=== PATIENT | male | born 1960 | race Caucasian/White ===

== ENCOUNTER 2022-04-24 20:57 | Emergency (ER) | payer SELFPAY ==
[~2022-04-24] VITALS: Ht 175.3 cm; Wt 87.5 kg
[2022-04-24] MEDS ORDERED: XARELTO20 MG PO (21:31)
[2022-04-24] MEDS ORDERED: LISINOPRIL5 MG PO (21:32)
[2022-04-24] MEDS ORDERED: METOPROLOL SUCC25 MG PO (21:33)
[2022-04-24] MEDS ORDERED: SPIRONOLACTONE25 MG PO (21:33)
[2022-04-24] MEDS ORDERED: TORSEMIDE20 MG PO (21:34)
--- OUTSIDE RECORDS SUMMARY | 2022-04-24 21:38 | XMS ---
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 Jenny has no Care Guidelines for this patient. EEdith VISIT COUNT (12 MO.) [address] [place] [id number] [address] TOTAL 10 NOTE: Visits indicate total known visits. ED/UCC VISIT TRACKING (12 MO.) 04/24/2022 20:58 [facility] [place] TYPE: Emergency COMPLAINT: - DIFFICULTY BREATHING 04/21/2022 02:30 [facility] [place] TYPE: Emergency DIAGNOSES: - Labs Only - LABS ONLY! Legal draw for OSP 02/14/2022 13:33 [facility] [place] TYPE: Emergency DIAGNOSES: - Generalized anxiety disorder - Shortness of Breath - Acute stress reaction - Dyspnea, unspecified - Difficulty Breathing - Pleural effusion, not elsewhere classified 02/06/2022 16:33 [facility] [place] TYPE: Emergency DIAGNOSES: - Pleural effusion, not elsewhere classified - Shortness of Breath - Longstanding persistent atrial fibrillation - Chest Pain 01/15/2022 18:47 [facility] [place] TYPE: Emergency DIAGNOSES: - Flank Pain - Pneumonia, unspecified organism - Rib Pain [facility]12[facility]2022 13:[facility] DIAGNOSES: - Unspecified complication of internal prosthetic device, implant and graft, initial encounter - Chest Injury - Longstanding persistent atrial fibrillation - Pleural effusion, not elsewhere classified 12/26/2021 20:22 [facility] [place] TYPE: Emergency DIAGNOSES: - Pleural effusion, not elsewhere classified - Hypo-osmolality and hyponatremia - Post traumatic seizures - Chronic obstructive pulmonary disease, unspecified - Chronic obstructive pulmonary disease with (acute) exacerbation - Other generalized epilepsy and epileptic syndromes, not intractable, without status epilepticus - Dehydration - Unspecified atrial fibrillation - Disorder of kidney and ureter, unspecified - Altered Mental Status 12/24/2021 20:[facility] [place] [facility] DIAGNOSES: - Shortness of Breath - SOB - Chronic systolic (congestive) heart failure 12/17/2021 05:22 [facility] TYPE: Emergency COMPLAINT: - EMS P2 Trauma [place] DIAGNOSES: - Priority 2 Transfer Bull Attack - Heart failure, unspecified - Heart failure, unspecified 12/16/2021 20:33 [facility] [place] TYPE: Emergency DIAGNOSES: - Contusion of heart, unspecified with or without hemopericardium, initial encounter - Pleural effusion, not elsewhere classified - Other ascites - Trauma INPATIENT VISIT TRACKING (12 MO.) 02/07/2022 00:29 [facility] TYPE: General Medicine COMPLAINT: - Pleural Effusion DIAGNOSES: - Pleural effusion, not elsewhere classified 12/26/2021 20:22 [facility] [place] TYPE: Internal Medicine DIAGNOSES: - Pleural effusion, not elsewhere classified - Other generalized epilepsy and epileptic syndromes, not intractable, without status epilepticus - Hypo-osmolality and hyponatremia - Post traumatic seizures - Chronic obstructive pulmonary disease, unspecified - Dehydration - Unspecified convulsions - Disorder of kidney and ureter, unspecified - Unspecified atrial fibrillation 12/17/2021 05:22 [facility] TYPE: General Medicine COMPLAINT: - EMS P2 Trauma [place] DIAGNOSES: - Other specified injuries of thorax, initial encounter - Acute on chronic systolic (congestive) heart failure - Heart failure, unspecified [email or web address]
--- NOTE | 2022-04-26 15:29 | EKG ---
[facility] [address] [place], [place] [address] Signed Atrial fibrillation Possible Anterior infarct , age undetermined ST \T\ T wave abnormality, consider lateral ischemia Abnormal ECG No previous ECGs available Confirmed by MELY NERI MD ([id number]) on 04/26/2022 3:29:15 PM Electronically Signed By: MELY NERI MD 04/26/22 1529 PATIENT NAME: AIDEE FLOREZ Electrocardiogram DATE OF : 58 PHYSICIAN: MELY NERI MD REPORT #: [id number] REPORT IS CONFIDENTIAL AND NOT TO BE RELEASED WITHOUT AUTHORIZATION
--- NOTE | 2022-04-26 15:29 | EKG ---
[facility] [address] [facility] [place] [address] Signed Atrial fibrillation Anterior infarct (cited on or before 24-APR-2022) ST \T\ T wave abnormality, consider lateral ischemia Abnormal ECG When compared with ECG of 24-APR-2022 21:17, (Unconfirmed) T wave inversion more evident in Lateral leads Confirmed by MELY NERI MD ([id number]) on 04/26/2022 3:29:24 PM Electronically Signed By: MELY NERI MD 04/26/22 1529 PATIENT NAME: AIDEE FLOREZ Electrocardiogram DATE OF : 58 PHYSICIAN: MELY NERI MD REPORT #: [id number] REPORT IS CONFIDENTIAL AND NOT TO BE RELEASED WITHOUT AUTHORIZATION
== END 2022-04-25 04:25 | disposition home or self-care (01) ==
LOC: ED 20:57
DX: I11.0 Hypertensive heart disease with heart failure (principal); I50.9 Heart failure, unspecified; I48.91 Unspecified atrial fibrillation; J44.9 Chronic obstructive pulmonary disease, unspecified; Z88.6 Allergy status to analgesic agent; Z88.8 Allergy status to other drugs, medicaments and biological substances; Z91.018 Allergy to other foods; Z91.048 Other nonmedicinal substance allergy status; Z79.899 Other long term (current) drug therapy; Z20.822 Contact with and (suspected) exposure to COVID-19
CPT/HCPCS: 36415; 71045; 80053; 83735; 83880; 84484; 85025; 85379; 87502; 93005; 93010; 96361; 96374; 99285-25; J7121; U0003

== ENCOUNTER 2022-06-18 14:42 | Emergency (ER) | payer MEDICARE ==
[~2022-06-18] VITALS: Ht 175.3 cm; Wt 83.5 kg
[~2022-06-18 14:42] MED LIST: LASIX40 MG PO; LISINOPRIL5 MG PO; METOPROLOL SUCC25 MG PO; SPIRONOLACTONE25 MG PO; TORSEMIDE20 MG PO; XARELTO20 MG PO
--- OUTSIDE RECORDS SUMMARY | 2022-06-18 14:44 | XMS ---
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 Jenny has no Care Guidelines for this patient. Ren VISIT COUNT (12 MO.) [address] [facility] TOTAL 14 NOTE: Visits indicate total known visits. ED/C VISIT TRACKING (12 MO.) 06/18/2022 14:[address] [facility] [place] TYPE: Emergency COMPLAINT: - CHEST PAIN 06/11/2022 20[facility] [place] TYPE: Emergency DIAGNOSES: - Chest Pain - Requesting medical attention. Chest pain, HTN - Alcohol use, unspecified with intoxication, uncomplicated - Abrasion of other part of head, initial encounter 06/10[facility]2022 [facility] DIAGNOSES: - Chest pain, unspecified - Headache (Adult - New Onset Or New Symptoms) - Laceration without foreign body of right hand, subsequent encounter - Nondisplaced fracture of shaft of second metacarpal bone, right hand, subsequent encounter for fracture with routine healing - Chest Pain 04/26/2022 11[facility] DIAGNOSES: - Altered mental status, unspecified - [facility] but breathing - Loss of Consciousness - Alcohol use, unspecified with intoxication, uncomplicated 04/24/2022 20:58 [facility] [place] TYPE: Emergency COMPLAINT: - DIFFICULTY BREATHING DIAGNOSES: - Unspecified atrial fibrillation - Shortness of breath - Contact with and (suspected) exposure to COVID-19 - Other nonmedicinal substance allergy status - Other ferry terminal agent (current) drug therapy - Heart failure, unspecified - Chronic obstructive pulmonary disease, unspecified - Hypertensive heart disease with heart failure - Allergy to other foods - Allergy status to analgesic agent - Allergy status to other drugs, medicaments and biological substances 04/21/2022 02:30 [facility] [place] TYPE: Emergency DIAGNOSES: - Labs Only - LABS ONLY! Legal draw for OSP 02/14/2022 13:33 [facility] [place] TYPE: Emergency DIAGNOSES: - Pleural effusion, not elsewhere classified - Generalized anxiety disorder - Shortness of Breath - Acute stress reaction - Dyspnea, unspecified - Difficulty Breathing 02/06/2022 16:33 [facility] [place] TYPE: Emergency DIAGNOSES: - Chest Pain - Pleural effusion, not elsewhere classified - Shortness of Breath - Longstanding persistent atrial fibrillation 01/15/2022 18:47 [facility] [place] TYPE: Emergency DIAGNOSES: - Flank Pain - Pneumonia, unspecified organism - Rib Pain 01/12/2022 13:20 [facility] [place] TYPE: Emergency DIAGNOSES: - Pleural effusion, not elsewhere classified - Unspecified complication of internal prosthetic device, implant and graft, initial encounter - Chest Injury - Longstanding persistent atrial fibrillation 12/26/2021 20:22 [facility] [place] TYPE: Emergency DIAGNOSES: - Altered Mental Status - Pleural effusion, not elsewhere classified - Hypo-osmolality and hyponatremia - Post traumatic seizures - Chronic obstructive pulmonary disease, unspecified - Chronic obstructive pulmonary disease with (acute) exacerbation - Other generalized epilepsy and epileptic syndromes, not intractable, without status epilepticus - Dehydration - Unspecified atrial fibrillation - Disorder of kidney and ureter, unspecified 12/24/2021 20:18 [facility] [place] TYPE: Emergency DIAGNOSES: - Shortness of Breath - SOB - Chronic systolic (congestive) heart failure 12/17/2021 05:22 [facility] TYPE: Emergency COMPLAINT: - EMS P2 Trauma [place] DIAGNOSES: - Priority 2 Transfer Bull Attack - Heart failure, unspecified - Heart failure, unspecified 12/16/2021 20:33 [facility] [place] TYPE: Emergency DIAGNOSES: - Trauma - Contusion of heart, unspecified with or without hemopericardium, initial encounter - Pleural effusion, not elsewhere classified - Other ascites INPATIENT VISIT TRACKING (12 MO.) 02/07/2022 00:29 [facility] TYPE: General Medicine COMPLAINT: - Pleural Effusion DIAGNOSES: - Pleural effusion, not elsewhere classified 12/26/2021 20:22 [facility] TYPE: Internal Medicine DIAGNOSES: - Unspecified atrial fibrillation - Pleural effusion, not elsewhere classified - Other generalized epilepsy and epileptic syndromes, not intractable, without status epilepticus - Hypo-osmolality and hyponatremia - Post traumatic seizures - Chronic obstructive pulmonary disease, unspecified - Dehydration - Unspecified convulsions - Disorder of kidney and ureter, unspecified 12/17/2021 05:22 [facility] TYPE: General Medicine COMPLAINT: - EMS P2 Trauma [place] DIAGNOSES: - Other specified injuries of thorax, initial encounter - Acute on chronic systolic (congestive) heart failure - Heart failure, unspecified [email or web address]
[2022-06-18] MEDS ORDERED: ENTRESTO 24 MG1 EACH PO (15:06)
[2022-06-18] MEDS ORDERED: BACTRIM DS TAB1 EACH PO (15:06)
[2022-06-18] MEDS ORDERED: NITROGLYCERIN0.4 MG SL (18:42)
--- NOTE | 2022-06-18 21:55 | EKG ---
[facility] [address] [facility] [place] [address] Signed Atrial fibrillation Minimal voltage criteria for LVH, may be normal variant ( [place] product ) Septal infarct , age undetermined ST \T\ T wave abnormality, consider lateral ischemia Abnormal ECG No previous ECGs available Confirmed by ROSALINDA ACOSTA MD ([id number]) on 06/18/2022 9:55:16 PM Electronically Signed By: ROSALINDA ACOSTA MD 06/18/22 2155 PATIENT NAME: AIDEE FLOREZ Electrocardiogram DATE OF : 58 PHYSICIAN: ROSALINDA ACOSTA MD REPORT #: [id number] REPORT IS CONFIDENTIAL AND NOT TO BE RELEASED WITHOUT AUTHORIZATION
== END 2022-06-18 19:01 | disposition home or self-care (01) ==
LOC: ED 14:42
DX: I20.9 Angina pectoris, unspecified (principal); I11.0 Hypertensive heart disease with heart failure; I50.9 Heart failure, unspecified; J44.9 Chronic obstructive pulmonary disease, unspecified; I48.91 Unspecified atrial fibrillation; Z91.018 Allergy to other foods; Z88.6 Allergy status to analgesic agent; Z88.8 Allergy status to other drugs, medicaments and biological substances
CPT/HCPCS: 36415; 71045; 80053; 83735; 84484; 85025; 93005; 93010; 99285-25